=== PATIENT | female | born 1945 | race Caucasian/White ===

== ENCOUNTER → 2019-12-25 09:00 | Outpatient (REF) | payer OTHER, SELFPAY | LOC: OLS.ACW200 09:00 | PROVIDERS: Referring Provider Family Medicine; Visit Provider Family Medicine | DX: R78.81 Bacteremia (principal); N39.0 Urinary tract infection, site not specified; J18.9 Pneumonia, unspecified organism; I48.0 Paroxysmal atrial fibrillation; R27.9 Unspecified lack of coordination; M19.90 Unspecified osteoarthritis, unspecified site; Z11.59 Encounter for screening for other viral diseases | CPT/HCPCS: 87635; U0003 ==

== ENCOUNTER → 2020-01-08 10:50 | Outpatient (REF) | payer OTHER, SELFPAY | LOC: OLS.ACW200 10:50 | PROVIDERS: Referring Provider Family Medicine; Visit Provider Family Medicine | DX: Z20.828 Contact with and (suspected) exposure to other viral communicable diseases (principal); N12 Tubulo-interstitial nephritis, not specified as acute or chronic; R78.81 Bacteremia; R65.21 Severe sepsis with septic shock; I48.0 Paroxysmal atrial fibrillation; E11.21 Type 2 diabetes mellitus with diabetic nephropathy | CPT/HCPCS: 87635; U0003 ==